=== PATIENT | male | born 1950 | race Caucasian/White ===

== ENCOUNTER 2020-09-15 14:13 | Inpatient (IN) | payer OTHER ==
[~2020-09-15] VITALS: Ht 172.7 cm; Wt 94.1 kg
[2020-12-04] VITALS (14 sets, daily range): BP systolic 108–134; BP diastolic 39–87; PULSE 52–78; TEMP 97.6–98.5
[2020-12-04] MEDS ORDERED: VITAMIN D31000 I1 PO (06:14)
[2020-12-04] MEDS ORDERED: PRALUENT P75 MG/1 ML SQ (06:14)
[2020-12-04] MEDS ORDERED: PHARMASSURE CHE30 MG PO (06:15)
[2020-12-04] MEDS ORDERED: VITAMIN C500 MG PO (06:15)
[2020-12-04] MEDS ORDERED: CVS SPECTRAVIT1 EA15 PO (06:16)
[2020-12-04] MEDS ORDERED: GLUCOPHAGE1000 MG PO (06:17)
[2020-12-04] MEDS ORDERED: JARDIANCE25 PO (06:17)
[2020-12-04] MEDS ORDERED: ASPIRIN E.C. 8181 MG PO (06:18)
[2020-12-04] MEDS ORDERED: NESINA25 PO (06:18)
--- NOTE | 2020-12-04 10:19 | NUR ---
PT TO ROOM 331 PER BED WITH REPORT FROM SYLVIA MARROQUIN PACU @3926. PT IS A/O X3, LUNGS CTA, BOWEL SOUNDS PRESENT, DRESSING TO LEFT KNEE CDI WITH OCCLUSIVE KATHRYN WRAP OVER INCISION.IV TO PUMP, VSS ASSESSMENTS COMPLETE. PT DENIES PNV. ICE WATER PROVIDED PER PT REQUEST.
--- NOTE | 2020-12-04 19:00 | NUR ---
RECEIVED CHANGE OF SHIFT REPORT FROM DAY SHIFT NURSE.
--- NOTE | 2020-12-05 02:22 | NUR ---
IV TO RIGHT HAND OUT, PATIENT DID NOT PULL OUT IV CATHETER. ATTEMPTED TO RESTART IV TO LUE X2 VENIPUNCTURES, UNSUCCESSFUL AT THIS TIME.
[2020-12-05 03:43] VITALS: BP 127/73; PULSE 58; TEMP 97.7
[2020-12-05 06:46] LABS: HEMOGLOBIN 14.3 g/dl (13.5-18.0)
[2020-12-05 07:15] VITALS: BP 127/77; PULSE 56; TEMP 97.5
--- NOTE | 2020-12-05 07:27 | NUR ---
CHANGE OF SHIFT REPORT GIVEN TO DAY SHIFT NURSE, ASHWINI MARROQUIN.
--- NOTE | 2020-12-05 09:45 | NUR ---
Assessment completed. INT on right arm, no signs of redness or swelling. Left lower extremity with Daniel wrap dressing CDI. Small amount of emesis X2. 2 sets of IS exercises to 3000ml. Ambulated with PT steady gate noted. No pain or discomfort at the time.
[2020-12-05 10:30] VITALS: BP 132/68; PULSE 57; TEMP 98.3
--- NOTE | 2020-12-05 10:30 | NUR ---
Initial visit; Patient suffering from nausea but thanked Probation Officer for stopping by and keeping him in her prayers.
--- NOTE | 2020-12-05 10:55 | NUR ---
SW met with patient sitting in his chair along with his , Deepa ([phone]) in the room. Patient and reside in [place] and he sees Dr. Colton Peres in [place] and he receives medications from [facility] or [facility] without any difficulty affording them. answered most of this worker's questions on behalf of patient. He reportedly has a cane, walker, shower chair, raised toilet seat, and grab bars. states that patient already has physical therapy set up through the [facility] after pt discharges. Patient does not have a MPOA completed but is interested in completing one here. SW will return for this. D/C - home pending medical stability
[2020-12-05 16:00] VITALS: BP 132/74; PULSE 75; TEMP 98.9
--- NOTE | 2020-12-05 19:00 | NUR ---
RECEIVED CHANGE OF SHIFT REPORT FROM DAY SHIFT NURSE. PATIENT RESTING IN BED, IN ROOM. PATIENT REPORTS NO NEEDS AT TIME OF REPORT. INT TO R UPPER ARM, INTACT.
[2020-12-05 19:05] VITALS: BP 127/72; PULSE 80; TEMP 98.9
[2020-12-05 23:33] VITALS: BP 126/70; PULSE 78; TEMP 98.1
--- NOTE | 2020-12-06 00:48 | NUR ---
PATIENT RESTING WITH EYES CLOSED, DOES NOT WAKE WHEN DOOR TO ROOM IS OPENED BY STAFF NURSE ON ROUNDS. BREATHING OBSERVED EVEN AND NONLABORED.
--- NOTE | 2020-12-06 01:30 | NUR ---
REQUESTED AND GIVEN PAIN MED. REPORTED HAD AMBULATED TO BATHROOM, ASSISTED BY PCT. DENIES ANY PROBLEMS WITH AMBULATION AND VOIDED WITH NO PROBLEMS OR DISCOMFORT.
[2020-12-06 03:48] VITALS: BP 128/76; PULSE 75; TEMP 98.4
[2020-12-06 06:35] VITALS: BP 120/76; PULSE 66; TEMP 98.9
--- NOTE | 2020-12-06 07:02 | NUR ---
CHANGE OF SHIFT REPORT GIVEN TO DAY SHIFT NURSE, ASHWINI MARROQUIN.
--- NOTE | 2020-12-06 08:35 | NUR ---
ASSESSMENT COMPLETED. 12IN AQUACELL DRESSING CHANGED ON LEFT KNEE. CDI INCISION WARM AND TENDER TO THE TOUCH, NO REDNESS AND EDGES WELL APPROXIMATED. PATIENT STATED PAIN WITH SCORE OF 3/10 DURING PT EXERCISES BUT TOLERATED WELL PHYSICAL ACTIVITY. INT IN PLACE ON RIGHT UPPER ARM, NO REDNESS OR SWELLING.
[2020-12-06 10:15] VITALS: BP 149/75; PULSE 80; TEMP 97.9
--- NOTE | 2020-12-06 11:15 | NUR ---
Patient alert and oriented, answers questions appropriately, see assessment. LLE incision with edges well approximated, no redness or drainage noted, 1+edema. Aquacel placed to left knee incision. Pulses palpable to LLE, sensation intact. Post op exercises reviewed with patient. LINDA barlow on, refused SCDs. No other c/o at this time.
[2020-12-06] MEDS ORDERED: NORCO 325 MG-7.1 TAB PO (12:50)
[2020-12-06] MEDS ORDERED: ASPI325T6 PO (12:50)
[2020-12-06] MEDS ORDERED: SENOKOT S 50 MG1 TAB PO (12:51)
[2020-12-06] MEDS ORDERED: ULTRAM 50MG TAB50 MG PO (12:51)
--- NOTE | 2020-12-06 14:12 | NUR ---
Discharge instructions reviewed with patient and spouse, verbalized understanding. Discharged via wheelchair to auto/home with spouse at 1410.
== END 2020-12-06 14:10 | disposition home or self-care (01) | DRG 470 ==
LOC: INPTSU 12-04 05:29 → SURG 12-04 07:30
PROVIDERS: ADMIT Orthopaedic Surgery
PROC: 0SRD0J9 Replacement of Left Knee Joint with Synthetic Substitute, Cemented, Open Approach (ICD-10-PCS; principal; 2020-12-04 07:30)
DX: M17.12 Unilateral primary osteoarthritis, left knee (principal); E11.9 Type 2 diabetes mellitus without complications; I11.9 Hypertensive heart disease without heart failure; Z23 Encounter for immunization
CPT/HCPCS: A9284; C1713; C1776; J0690; J1885; J2250; J2405; J2704; J3010; J7030; J7120